=== PATIENT | female | born 1990 | race Caucasian/White ===

== ENCOUNTER 2018-01-30 13:45 | Inpatient (IN) | payer OTHER ==
[~2018-01-30] VITALS: Ht 149.9 cm; Wt 3694.0 kg
[2018-02-03] MEDS ORDERED: PRENATAL 19 TA1 EAC1 PO (08:08)
[2018-02-03] MEDS ORDERED: ASA81 MG PO (08:09)
[2018-02-06] MEDS ORDERED: PRENATAL 19 TA1 EAC1 PO (09:16)
[2018-02-06] MEDS ORDERED: IBUPROFEN600 MG PO (09:17)
== END 2018-02-06 10:25 | disposition home or self-care (01) | DRG 766 ==
LOC: LDR 02-03 05:30 → OB/GYN 02-03 05:30 → O/R 02-03 14:53 → OB/GYN 02-03 16:28
PROVIDERS: Obstetrics & Gynecology
PROC: 0UT70ZZ Resection of Bilateral Fallopian Tubes, Open Approach (ICD-10-PCS; 2018-02-03)
PROC: 4A1HXCZ Monitoring of Products of Conception, Cardiac Rate, External Approach (ICD-10-PCS; 2018-02-03)
PROC: 4A033R1 Measurement of Arterial Saturation, Peripheral, Percutaneous Approach (ICD-10-PCS; 2018-02-03)
PROC: 10D00Z1 Extraction of Products of Conception, Low, Open Approach (ICD-10-PCS; principal; 2018-02-03 13:00)
DX: O62.1 Secondary uterine inertia (principal); O69.81X0 Labor and delivery complicated by cord around neck, without compression, not applicable or unspecified; O33.8 Maternal care for disproportion of other origin; Z30.2 Encounter for sterilization; Z64.1 Problems related to multiparity; Z37.0 Single live birth; Z3A.39 39 weeks gestation of pregnancy

== ENCOUNTER 2023-11-13 06:00 | Day surgery (SDC) | payer OTHER ==
[~2023-11-13 06:00] MED LIST: ASA81 MG PO; IBUPROFEN600 MG PO; PRENATAL 19 TA1 EAC1 PO
== END 2023-11-13 10:40 | disposition home or self-care (01) ==
LOC: AMB-ENDOS 06:00
PROVIDERS: ATTEND Surgery
DX: K29.50 Unspecified chronic gastritis without bleeding (principal); K44.9 Diaphragmatic hernia without obstruction or gangrene; R10.13 Epigastric pain